=== PATIENT | male | born 1945 | race Caucasian/White ===

== ENCOUNTER 2024-12-21 13:27 | Inpatient (IN) | payer MEDICARE, OTHER, SELFPAY ==
[2024-12-21] VITALS (12 sets, daily range): BP systolic 133–159; BP diastolic 71–120; BMI 33.3; BMI 33.2
--- NOTE | 2024-12-21 10:48 | ED.GENMED ---
History of Present Illness
General
Chief Complaint: Musculo-Skeletal Complaint
Source: patient
Exam Limitations: none
Time Seen by Provider: 12/21/24 10:13
History of Present Illness
History of Present Illness:
See MDM
Past History
Past History
ED Past Medical History: HTN, Hypercholesterolemia and Hypothyroidism
ED Past Surgical History: Cardiac (Aortic aneurysm repair) and Orthopedic
Social History
Tobacco: Non-smoker
Alcohol: None
Phy Exam
Physical Exam
Physical Exam:
See MDM
Course
Orders/Labs/Results
Orders:
Orders
12/21/24 10:40
Morphine Sulfate 4 mg IV NOW STA
12/21/24 10:41
CT Head W/o Iv Contrast Urgent
Comment:
Reason For Exam: headache
C-Reactive Protein Urgent
12/21/24 10:55
Add On- LAB Urgent
Tests Added?: ESR, CRP
US Carotid [US Cerebrovascular] Urgent
Comment:
Reason For Exam: b/l neck pain
12/21/24 11:02
Complete Blood Count/With Diff Urgent
Comprehensive Metabolic Panel Urgent
Erythrocyte Sed Rate Urgent
PTT Urgent
Prothrombin Time Urgent
Abnormal Lab Results
12/21/24
11:02
RBC 4.54 L 10^6/uL
(4.70-6.10)
Absolute Monos (auto) 0.9 H 10^3/uL
(0.1-0.6)
Lymphocytes % 17.1 L %
(20.5-51.1)
Monocytes % 11.0 H %
(1.7-9.3)
Carbon Dioxide 31 H mmol/L
(22-30)
Creatinine 0.6 L mg/dL
(0.7-1.3)
Glucose 116 H mg/dl
(70-99)
12/21/24 11:02
12/21/24 11:02
Vital Signs
Initial and Last Documented VS:
Initial Vital Signs
Temp Pulse Resp BP Pulse Ox
98.0 F 89 16 148/80 98
12/21/24 09:54 12/21/24 09:54 12/21/24 09:54 12/21/24 09:54 12/21/24 09:54
Last Documented Vital Signs
Temp Pulse Resp BP Pulse Ox
98.0 F 89 16 145/76 94
12/21/24 09:54 12/21/24 09:54 12/21/24 09:54 12/21/24 11:48 12/21/24 11:49
MDM/Problems Addressed
Differential Diagnosis Includes:
HPI and MDM Narrative:
79-year-old male presenting for approximately 4 days of headache and neck pain. Because his PCP is on vacation, he went to urgent care. Based on the tenderness in the right jaw, he was placed on antibiotics. Patient states he is having trouble
moving his neck [id number] due to ongoing pain. He is not noticing a superior headache as well. Patient has not been able to sleep due to the pain. On my exam, he has point tenderness to bilateral anterior neck, near the carotids. I discussed
the importance of carotid imaging such as CT angiogram. Patient states he has anaphylaxis to IV dye and requires a 24-hour prep before obtaining CT dye.
Physical exam
General: Mildly uncomfortable
HEENT: protecting airway. No dental infection noted
Neck: supple. Point tenderness to bilateral anterior neck
CV: No evidence of cyanosis
Resp: No accessory muscle use
Abd: Non-distended
Extremities: No deformities
Neuro: alert
Psych: Normal affect
Skin: Intact
Problems Addressed including Acute and Chronic Conditions affecting care:
1. Headache and neck pain
Acuity: acute
Prognosis: stable
Details: Given ongoing headache, will obtain CT head. Given the neck pain, patient requires some sort of neck imaging but states he requires 24-hour prep before CT IV dye
Updates
Case discussed with radiology. We discussed alternative diagnostic testing. We did discuss possibly obtaining carotid ultrasound and admitting for further testing. Case discussed with vascular surgery. Although possible, it is less likely that
this is bilateral carotid dissection. Given that CTA would be the better study for looking at the whole neck, will admit for IV dye prep and further testing
CT head negative. Will admit for further imaging
Differential Diagnosis (but not limited to): Carotid dissection, lymphadenopathy, cluster headache
Testing considered: CT angiogram neck
Drug therapy (if applicable): OTC meds, please see d/c instruction regarding Rx drugs
Amount and/or Complexity of Data Reviewed
Clinical info obtained from: Patient
External data reviewed: N/A
Labs I independently reviewed (but not limited to): WBC normal
Radiology: the CT scan was personally and independently reviewed. In addition, official CT report reviewed.
Pulse Ox: not hypoxic
EKG independently reviewed: N/A
News Clerk: N/A
Critical Care: N/A
Risk of Complication:
Social Determinants of health: Good social support
Discussed with other providers: hospitalist
Escalation of Care includes Admit/Obs: Given his ongoing neck pain and need for 24-hour steroid prep or IV dye, will admit
Occasional wrong word or 'sound a like' substitutions may have occurred due to the inherent limitations of voice recognition software. Read the chart carefully and recognize, using context, where substitutions have occurred.
*Critical Care Note
Total Time (30-74mins, 75-104mins- exclusive of procedures): Not Applicable
ED Attending Note
-
Portions of this chart may have been created with voice recognition software.� Occasional wrong word or��sound alike� substitutions may have occurred due to the inherent limitations of voice recognition software.
Discharge Plan
Departure
Patient Disposition: Admit
Date of Disposition: 12/21/24
Time of Disposition: 12:21
Admit to: Med/Surg
Presentation/result/management discussed w/ accepting MD/DO: Hospitalist
Discharge Problem:
Acute neck pain
Referrals:
JAMILA HILL MD [Family Provider] -
Interventions
Interventions:
*Risk Screen - Suicide Last Done: 12/21/24 09:54
*General Assessment Last Done: 12/21/24 10:20
*Neglect/Abuse Screening Last Done: 12/21/24 09:54
*ED- Fall Risk Assessment Last Done: 12/21/24 10:20
*ED COVID-19 Vaccine History Last Done: 12/21/24 10:20
ED-Musculoskeletal Assessment Last Done: 12/21/24 10:20
Discharge Date and Time
Print Language: TAJIK
[2024-12-21 11:16] LABS: Erythrocyte Sed Rate 15 mm/hour (0-20)
[2024-12-21] MEDS: MORPHINE SULFATE 4 MG IV (11:45)
[2024-12-21 12:14] LABS: % Basophils 0.5 % (0-2); % Immature Granulocytes 0.5 % (0-0.5); % Lymphocytes 17.1 % (20.5-51.1); % Neutrophils 69.9 % (42.2-75.2); Absolute Eosinophils 0.1 10^3/uL (0-0.7); Absolute Lymphocytes 1.3 10^3/uL (1.2-3.4); Absolute Monocytes 0.9 10^3/uL (0.1-0.6); Absolute Neutrophils 5.5 10^3/uL (1.4-6.5); Hematocrit 40.5 % (39.0-52.0); Hemoglobin 13.9 g/dL (13.0-18.0); Mean Corp Hgb Conc. 34.3 g/dL (33.0-37.0); Mean Corpuscular Hgb 30.6 pg (27.0-31.0); Mean Corpuscular Volume 89.2 fL (80.0-94.0); Nucleated Red Blood Cells % 0 % (-); Red Blood Cell Count 4.54 10^6/uL (4.70-6.10); Red Cell Dist. Width 13.4 % (11.5-14.5); White Blood Cell Count 7.9 10^3/uL (4.8-10.8)
[2024-12-21 12:15] LABS: ALT (SGPT) 16 U/L (0-50); AST (SGOT) 20 U/L (17-59); Alkaline Phosphatase 69 U/L (38-126); Blood Urea Nitrogen 14 mg/dl (9-20); Calcium 9.7 mg/dl (8.4-10.2); Carbon Dioxide 31 mmol/L (22-30); Chloride 102 mmol/L (98-107); Estimated Creatinine Clearance > 125 ml/min; Glucose 116 mg/dl (70-99); INR 1.13; PT 14.8 Sec (11.4-14.6); Potassium 3.9 mmol/L (3.5-5.1); Sodium 138 mmol/L (135-145); Total Bilirubin 1.3 mg/dl (0.2-1.3); Total Protein 6.5 g/dl (6.3-8.2); eGFR > 60.00
[2024-12-21 12:16] LABS: APTT 34.6 Sec (23.4-35.0)
[2024-12-21] MEDS: DILAUDID 0.5 MG IV (12:42)
--- NOTE | 2024-12-21 12:48 | HPS.HSE ---
Addendum entered and electronically signed by Shalini Sanz MD 12/21/24 14:35:
Ordered 12 hour steroid and benadryl protocol for CTA. Stopped clindamycin.
Addendum entered and electronically signed by Shalini Sanz MD 12/21/24 12:51:
Epistaxis
-now resolved
Original Note:
Family Physician
-
Family Physician: JAMILA HILL MD
Chief Complaint
-
neck pain
History of Present Illness
79-year-old male past medical history of cervical disc disease from youth, ascending aortic aneurysm status post repair 9 years ago, sinus surgery, BPH, hypertension, hyperlipidemia, GERD, hypothyroidism, presenting with neck pain over this past
week. He originally started having bilateral nasal bleeding that has resolved. Then around 4 to 5 days ago he developed pain in his bilateral neck limiting his neck movements. He has pain in his left neck when he moves his head to the right and
vice versa. He denies any pain in his teeth or jaw or anterior neck. He was started on antibiotic at urgent care for potential tooth infection.
He denies any injury to the neck. He denies any headache. He denies any pain in the temporal regions.
He denies having pain like this before. He denies any symptoms in his arms. He denies fevers or chills.
He has chronic blurry vision and occasional double vision for which he is due to get new glasses.
He drinks 1 martini few times a week. Denies smoking.
His father had colorectal cancer.
Medical History
Past Medical History
Past Medical History: Reports Other ( cervical disc disease from youth, ascending aortic aneurysm status post repair 9 years ago, sinus surgery, BPH, hypertension, hyperlipidemia, GERD, hypothyroidism)
Past Surgical History: Reports Other (Sinus surgery, vasectomy, ascending aortic aneurysm repair)
Social History
Tobacco: Non-smoker
Alcohol: Occasional
Drug: None
Family History
Family History: Not pertinent
Allergies / Home Medications
Allergies reflects when Allergies were last updated in [facility].
Home Medications with original date entered in [facility]
Allergy/Medication List:
Allergies
Allergy/AdvReac Type Severity Reaction Status Date / Time
seasonal allergies Allergy Itching Uncoded 12/21/24 10:01
Review of Systems
-
History Source: Patient
A 12 point ROS was completed and negative except as noted: Yes
Constitutional: Reports No Symptoms
EENT: Reports No Symptoms
Respiratory: Reports No Symptoms
Cardiac: Reports No Symptoms
Abdomen/GI: Reports No Symptoms
: Reports No Symptoms
Musculoskeletal: Reports No Symptoms
Skin: Reports No Symptoms
Neurological: Reports No Symptoms
Endocrine: Reports No Symptoms
Hematologic/Lymphatic: Reports No Symptoms
Psych: Reports No Symptoms
Physical Exam
Vital Signs
Vital Signs
Temp Pulse Resp BP Pulse Ox
98.0 F 89 16 145/76 94
12/21/24 09:54 12/21/24 09:54 12/21/24 09:54 12/21/24 11:48 12/21/24 11:49
Physical Exam
General: Well Developed, Well Nourished and No Apparent Distress
HEENT: NormoCephalic, Moist mucous membranes and Atraumatic
Respiratory: Clear
Cardiac: S1/S2 and Regular Rhythm; No Murmur or Rub
GI: Soft, Non Tender, Non Distended and Normal Bowel Sounds; No Organomegaly
Rectal: Deferred by Provider
Musculoskeletal: No Clubbing, No Cyanosis, No Edema and Other (posterior neck muscle tenderness )
Skin: No Rash
Neuro: Nonfocal/grossly intact
Laboratory Results
-
12/21/24 11:02
12/21/24 11:02
Laboratory Results
PT 14.8 Sec (11.4-14.6) H 12/21/24 11:02
INR 1.13 12/21/24 11:02
APTT 34.6 Sec (23.4-35.0) 12/21/24 11:02
Total Bilirubin 1.3 mg/dl (0.2-1.3) 12/21/24 11:02
AST 20 U/L (17-59) 12/21/24 11:02
ALT 16 U/L (0-50) 12/21/24 11:02
Alkaline Phosphatase 69 U/L (38-126) 12/21/24 11:02
Data Reviewed
-
Lab Data: Labs Reviewed by me
Old Records: Reviewed
Impression/Plan
-
IMPRESSION:
PLAN:
# Bilateral posterior neck pain with neck swelling likely cervical muscle strain, less likely carotid vascular dissection
# History of cervical disc disease from childhood
-He has clear swelling and tenderness of the cervical neck and bilateral trapezius area
-ER note discusses anterior neck pain however patient denies
- CT head shows no acute abnormality
- CRP and ESR pending
- ER discussed with vascular who recommended CTA head and neck however patient has contrast allergy (anaphyllaxis) and requires 24-hour steroid prep which will be started
- Carotid ultrasound pending
-Check cervical x-ray
- Morphine given
- Continue Tylenol, add Flexeril
#Chronic blurry vision/intermittent double vision
-opthalmic, patient needs glasses udate
Ascending aortic aneurysm s/p repair 9 years ago
History of sinus surgery
BPH
Essential hypertension
- Continue hydrochlorothiazide, metoprolol
Hyperlipidemia
- Continue Zetia
GERD
- Continue PPI
Hypothyroidism
- Continue levothyroxine
Full code
DVT prophylaxis�heparin
Regular diet
[2024-12-21] MEDS: LIDOCAINE 4% PATCH 1 PATCH TOPICAL (13:20)
[2024-12-21] MEDS: MEDROL 32 MG PO (14:23)
[2024-12-21] MEDS: ZESTRIL 20 MG PO (21:43)
[2024-12-21] MEDS: TOPROL XL 50 MG PO (21:44)
[2024-12-21] MEDS: BACTROBAN 2% OINTMENT 1 APPLIC TOPICAL (21:45)
[2024-12-21] MEDS: HEPARIN 5000 UNITS SC (21:46)
[2024-12-21] MEDS: NAPROSYN 250 MG PO (22:05)
[2024-12-21] MEDS: XALATAN OPHTHALMIC SOLUTION 1 DROP BOTH EYES (22:06)
[2024-12-21] MEDS: SINGULAIR 10 MG PO (22:06)
--- NOTE | 2024-12-22 03:36 | PTCARENOTE ---
Patient arrived to floor from ED. Patient ambulated from stretcher to bed. Patient oriented to room, patient AAOx3. Call claros within reach, bed in the lowest position. Will continue to monitor.
--- NOTE | 2024-12-22 05:32 | PTCARENOTE ---
Patient CT scan moved to 0800. Allergies updated. Will continue to monitor.
--- NOTE | 2024-12-22 05:41 | PTCARENOTE ---
Patient made aware by this RN that both Astepro and Tadalafil are non formulary with no auto sub in place. Patient stated he is 'just going to wait to go home to continue taking them.' Will continue to monitor.
[2024-12-22] MEDS: MEDROL 32 MG PO (05:59)
[2024-12-22] MEDS: SYNTHROID 137 MCG PO (05:59)
[2024-12-22 06:37] LABS: % Basophils 0.1 % (0-2); % Eosinophils 0.1 % (0-6); % Immature Granulocytes 0.7 % (0-0.5); % Lymphocytes 14.7 % (20.5-51.1); % Monocytes 7.7 % (1.7-9.3); % Neutrophils 76.7 % (42.2-75.2); Absolute Immature Granulocytes 0.1 10^3/uL (0-0.05); Absolute Lymphocytes 1.1 10^3/uL (1.2-3.4); Absolute Monocytes 0.6 10^3/uL (0.1-0.6); Absolute Neutrophils 5.8 10^3/uL (1.4-6.5); Mean Corp Hgb Conc. 33.3 g/dL (33.0-37.0); Mean Corpuscular Hgb 30.5 pg (27.0-31.0); Mean Corpuscular Volume 91.5 fL (80.0-94.0); Nucleated Red Blood Cells % 0 % (-); Platelet Count 166 10^3/uL (130-400); Red Blood Cell Count 4.59 10^6/uL (4.70-6.10); Red Cell Dist. Width 13.1 % (11.5-14.5); White Blood Cell Count 7.5 10^3/uL (4.8-10.8)
[2024-12-22] MEDS: BENADRYL 50 MG PO ×2 (06:38→10:47)
[2024-12-22 07:04] LABS: ALT (SGPT) 16 U/L (0-50); AST (SGOT) 20 U/L (17-59); Albumin 4.2 g/dl (3.5-5.0); Alkaline Phosphatase 70 U/L (38-126); Blood Urea Nitrogen 18 mg/dl (9-20); Calcium 9.2 mg/dl (8.4-10.2); Carbon Dioxide 32 mmol/L (22-30); Chloride 99 mmol/L (98-107); Estimated Creatinine Clearance > 125 ml/min; Glucose 125 mg/dl (70-99); Potassium 4.5 mmol/L (3.5-5.1); Sodium 140 mmol/L (135-145); Total Bilirubin 0.8 mg/dl (0.2-1.3); Total Protein 6.7 g/dl (6.3-8.2); eGFR > 60.00
[2024-12-22 07:30] VITALS: BP 134/78
--- NOTE | 2024-12-22 07:53 | W.PN.HOSP.TC ---
Today's Communication/Plan
-
Possible discharge tomorrow if symptoms cont to improve and pending PT/OT eval
pain control
Assessment / Plan
Assessment / Plan
Physical Exam
General: Well Developed, Well Nourished and No Apparent Distress
HEENT: NormoCephalic, Moist mucous membranes and Atraumatic. No significant right facial swelling noted at this time
Respiratory: Clear
Cardiac: S1/S2 and Regular Rhythm; No Murmur or Rub
GI: Soft, Non Tender, Non Distended and Normal Bowel Sounds; No Organomegaly
Rectal: Deferred by Provider
Musculoskeletal: No Clubbing, No Cyanosis, No Edema, some neck stiffness/tenderness persist limited range of motion though significantly improved per patient
Skin: No Rash
Neuro: AOx3 conversant coherent
HPI: 79M hx cervical disc disease from youth, ascending aortic aneurysm status post repair 9 years ago, sinus surgery, BPH, hypertension, hyperlipidemia, GERD, hypothyroidism, p/w progressive neck pain over the past week limiting rotation of his
neck. On evaluation at urgent care he was noted to have right sided facial swelling jaw tenderness, concern for potential tooth infection, for which he was started on Clindamycin. He had taken only 1 day's worth doses (300 mg QID) when he
presented to ED d/t worsening pain/stiffness overnight waking him from sleep. Denied any injury to the neck, headache, or pain in the temporal regions. Denied having pain like this before. Denied fever or chills.
# Bilateral posterior neck pain with neck swelling possible cervical muscle strain, carotid vascular dissection ruled out
#Possible Acute Dystonia rxn unclear from what though
# History of cervical disc disease from childhood
- CT head showed no acute abnormality
- ESR wnl though CRP elevated
- ER discussed with vascular who recommended CTA head and neck however patient has contrast allergy (anaphyllaxis) and required 24-hour steroid prep
- CTA head/neck appreciated no significant acute abn's, mild left supraclavicular nonspecific adenopathy
- cervical x-ray appreciated degenerative changes otherwise no acute abn's
- cont pain control Tylenol Flexeril prn Morphine
- monitor off abx
-symptoms since significantly improved, possibly d/t steroid prep as above. Monitor for recurrence/worsening symptoms. Possible discharge tomorrow if continues to improve pending PT/OT eval.
#Chronic blurry vision/intermittent double vision
-opthalmic, patient needs glasses update
Ascending aortic aneurysm s/p repair 9 years ago
History of sinus surgery
BPH
Essential hypertension
- Continue hydrochlorothiazide, metoprolol
Hyperlipidemia
- Continue Zetia
GERD
- Continue PPI
Hypothyroidism
- Continue levothyroxine
PT/OT eval
Full code
DVT prophylaxis�heparin
Regular diet
discussed with patient and patient's daughter Barbara
I spent a total of 50 minutes with the patient or on the floor. More than 50% of this time involved counseling and coordination of care.
Anticipated Discharge: Within 24 hours
Subjective/Interval History
-
Date of Service: December 22, 2024
Reports pain and swelling significantly improved.
Objective Data
-
Labs:
Laboratory Results
12/22/24
05:39
WBC 7.5
Hgb 14.0
Hct 42.0
Plt Count 166
Sodium 140
Potassium 4.5
Chloride 99
Carbon Dioxide 32 H
BUN 18
Creatinine 0.6 L
Glucose 125 H
Calcium 9.2
Total Bilirubin 0.8
AST 20
ALT 16
Alkaline Phosphatase 70
Vital Signs:
Vital Signs
Temp Pulse Resp BP Pulse Ox
97.7 F 98 18 137/71 98
12/21/24 23:00 12/21/24 23:00 12/21/24 23:00 12/21/24 23:00 12/21/24 23:00
[2024-12-22] MEDS: THERAGRAN 1 TABLET PO (09:52)
[2024-12-22] MEDS: VITAMIN D3 (cholecalciferol) 75 MCG PO (09:52)
[2024-12-22] MEDS: ASPIR LOW (ENTERIC COATED) 81 MG PO (09:52)
[2024-12-22] MEDS: ZETIA 10 MG PO (09:52)
[2024-12-22] MEDS: NAPROSYN 250 MG PO ×2 (09:52→20:43)
[2024-12-22] MEDS: ORETIC 25 MG PO (09:52)
[2024-12-22] MEDS: PROTONIX 40 MG PO (09:52)
[2024-12-22] MEDS: CLARITIN 10 MG PO (09:52)
[2024-12-22] MEDS: VISBIOME 1 CAP PO (09:52)
[2024-12-22] MEDS: HEPARIN 5000 UNITS SC ×2 (09:53→20:42)
[2024-12-22] MEDS: BACTROBAN 2% OINTMENT 1 APPLIC TOPICAL ×2 (09:53→20:47)
[2024-12-22] MEDS: LIDOCAINE 4% PATCH 1 PATCH TOPICAL (09:53)
[2024-12-22] MEDS: DELTASONE 50 MG PO (10:45)
--- NOTE | 2024-12-22 15:16 | CM ---
Patient seen at bedside with daughter Barbara
IA completed
Head/Neck CTAC completed
Lives alone in 2 story home, 1 step to enter, flight of stairs to bedroom/bath, powder room 1st floor
PLOF: independent
DME: Crutches, cane
Denes VN/has had outpatient PT in past
drove self to hospital
PCP: Jm Salgado
Pharmacy: [facility] [address]
Plan: home, no needs anticipated, CM to continue to follow
[2024-12-22 15:30] VITALS: BP 121/68
[2024-12-22] MEDS: FLEXERIL 5 MG PO (16:01)
[2024-12-22] MEDS: ZESTRIL 20 MG PO (17:51)
[2024-12-22] MEDS: TOPROL XL 50 MG PO (17:51)
[2024-12-22] MEDS: XALATAN OPHTHALMIC SOLUTION 1 DROP BOTH EYES (20:58)
[2024-12-22] MEDS: SINGULAIR 10 MG PO (21:16)
[2024-12-22 23:00] VITALS: BP 127/58
[2024-12-23 06:18] LABS: Hemoglobin 14.1 g/dL (13.0-18.0); Mean Corp Hgb Conc. 32.8 g/dL (33.0-37.0); Mean Corpuscular Hgb 30.3 pg (27.0-31.0); Mean Corpuscular Volume 92.5 fL (80.0-94.0); Mean Platelet Volume 9.8 fL (7.4-10.4); Platelet Count 185 10^3/uL (130-400); Red Blood Cell Count 4.65 10^6/uL (4.70-6.10); Red Cell Dist. Width 13.2 % (11.5-14.5); White Blood Cell Count 10.3 10^3/uL (4.8-10.8)
[2024-12-23] MEDS: SYNTHROID 137 MCG PO (06:21)
[2024-12-23 06:55] LABS: Blood Urea Nitrogen 32 mg/dl (9-20); Calcium 9.4 mg/dl (8.4-10.2); Carbon Dioxide 32 mmol/L (22-30); Chloride 100 mmol/L (98-107); Estimated Creatinine Clearance 110 ml/min; Glucose 116 mg/dl (70-99); Phosphorus 4.1 mg/dl (2.5-4.5); Potassium 4.3 mmol/L (3.5-5.1); Sodium 141 mmol/L (135-145); eGFR > 60.00
[2024-12-23 07:32] VITALS: BP 129/79
[2024-12-23] MEDS: LIDOCAINE 4% PATCH 1 PATCH TOPICAL (09:10)
[2024-12-23] MEDS: NAPROSYN 250 MG PO (09:11)
[2024-12-23] MEDS: CLARITIN 10 MG PO (09:11)
[2024-12-23] MEDS: THERAGRAN 1 TABLET PO (09:11)
[2024-12-23] MEDS: ZETIA 10 MG PO (09:11)
[2024-12-23] MEDS: VITAMIN D3 (cholecalciferol) 75 MCG PO (09:11)
[2024-12-23] MEDS: VISBIOME 1 CAP PO (09:11)
[2024-12-23] MEDS: PROTONIX 40 MG PO (09:11)
[2024-12-23] MEDS: ORETIC 25 MG PO (09:11)
[2024-12-23] MEDS: ASPIR LOW (ENTERIC COATED) 81 MG PO (09:12)
[2024-12-23] MEDS: HEPARIN 5000 UNITS SC (09:13)
[2024-12-23] MEDS: BACTROBAN 2% OINTMENT 1 APPLIC TOPICAL (09:13)
--- NOTE | 2024-12-23 10:11 | CON.ONC ---
Consultation
-
Date Consultation Requested: 12/23/24
Date Consultation Performed: 12/23/24
Requesting Provider: Braulio Haile MD
Performing Provider: Cande Patton MD
Reason for Consultation: L supraclavicular adenopathy
Impression
Impression
Supraclavicular node 1.4 cm.
Neck pain.
Plan
Plan
Pt with small supraclavicular node.
Suspect unrelated to the acute process.
Because lymph node is very small, lymph node could be reimaged by U/S in two months to verify stability, refer to ENT if biopsy needed.
Pt is actually seeing his ENT in two weeks. His ENT is not in the [facility] system. Advised pt/daughter to obtain disc from Radiology with CT images for pt's ENT to review.
Does not require Med Onc follow up.
Cleared for D/C from our standpoint.
Patient History
History of Present Illness
79-year-old male hx cervical disc disease, ascending aortic aneurysm status post repair 9 years ago, sinus surgery, BPH, hypertension, hyperlipidemia, GERD, hypothyroidism, p/w progressive neck pain over the past week limiting rotation of his neck.
On evaluation at urgent care he was noted to have right sided facial swelling jaw tenderness, concern for potential tooth infection, for which he was started on Clindamycin. He had taken only 1 day's worth doses (300 mg QID) when he presented to ED
d/t worsening pain/stiffness overnight waking him from sleep. Denied any injury to the neck, headache, or pain in the temporal regions. CTA head and neck incidentally noted a 1.4 cm L supraclav lymph node, otherwise unremarkable. Drinks alcohol
regularly but does not smoke.
Past-Medical/Surgical History
Medical History
Cervical disc disease from youth, ascending aortic aneurysm status post repair 9 years ago, sinus surgery, BPH, hypertension, hyperlipidemia, GERD, hypothyroidism
Surgical History
Sinus surgery, vasectomy, ascending aortic aneurysm repair
Social History
Tobacco: Non-smoker
Alcohol: three martinis per week
Drug: None
Family History
Family History: Not pertinent
Patient Medication
�Medication �Instructions �Recorded �Confirmed �Last Taken �Type
Lactobac no.2-Bifidobac no.1-S. 1 cap PO DAILY 12/21/24 12/21/24 Unknown History
thermo 112.5 billion cell capsule
(Visbiome)
amoxicillin 500 mg capsule 2,000 mg PO DAILYPRN PRN for 12/21/24 12/21/24 Unknown History
dental visits
aspirin 81 mg tablet 81 mg PO DAILY 12/21/24 12/21/24 12/21/24 History
azelastine 205.5 mcg (0.15 %) 1 spray intranasal BID 12/21/24 12/21/24 12/21/24 History
nasal spray (Astepro Allergy)
cholecalciferol (vitamin D3) 25 75 mcg PO DAILY 12/21/24 12/21/24 12/20/24 History
mcg (1,000 unit) tablet
clindamycin HCl 300 mg capsule 300 mg PO QID 12/21/24 12/21/24 12/21/24 History
ezetimibe 10 mg tablet 10 mg PO DAILY 12/21/24 12/21/24 12/21/24 History
hydrochlorothiazide 25 mg tablet 25 mg PO DAILY 12/21/24 12/21/24 12/21/24 History
latanoprost 0.005 % eye drops 1 drp BOTH EYES HS 12/21/24 12/21/24 12/20/24 History
levothyroxine 137 mcg tablet 137 mcg PO DAILY 12/21/24 12/21/24 12/21/24 History
lisinopril 20 mg tablet 20 mg PO QPM 12/21/24 12/21/24 12/20/24 History
loratadine 10 mg tablet (Claritin) 10 mg PO DAILY 12/21/24 12/21/24 12/21/24 History
metoprolol succinate 50 mg 50 mg PO QPM 12/21/24 12/21/24 12/20/24 History
tablet,extended release 24 hr
montelukast 10 mg tablet 10 mg PO HS 12/21/24 12/21/24 12/20/24 History
asxlhdfmqexi-eqcmuuea-tbrvmd tablet 1 tab PO DAILY 12/21/24 12/21/24 12/20/24 History
mupirocin 2 % topical ointment 1 applic topical BID to sore on 12/21/24 12/21/24 12/21/24 History
abdomen
naproxen sodium 220 mg tablet 220 mg PO BID 12/21/24 12/21/24 12/21/24 History
(Aleve)
omeprazole 20 mg capsule,delayed 20 mg PO DAILY 12/21/24 12/21/24 12/21/24 History
release
tadalafil 5 mg tablet 5 mg PO QPM 12/21/24 12/21/24 12/20/24 History
Active Medications
Generic Name Dose Route Start Last Admin
Trade Name Freq PRN Reason Stop Dose Admin
Acetaminophen 650 mg 12/21/24 19:49
Acetaminophen 325 Mg Tablet PO 01/18/25 19:48
Q4HPRN PRN
mild pain/IVORY/temp> 100.4F
Aspirin 81 mg 12/22/24 08:00 12/23/24 09:12
Aspirin 81 Mg (Enteric Coated) Tablet PO 01/19/25 07:59 81 mg
DAILY CORWIN Administration
Cholecalciferol 75 mcg 12/22/24 08:00 12/23/24 09:11
Cholecalciferol (Vitamin D3) 25 Mcg Tablet (1,000 Units) PO 01/19/25 07:59 75 mcg
DAILY CORWIN Administration
Cyclobenzaprine HCl 5 mg 12/21/24 19:49 12/22/24 16:01
Cyclobenzaprine 10 Mg Tablet PO 01/18/25 19:48 5 mg
Q8HPRN PRN Administration
neck pain
Ezetimibe 10 mg 12/22/24 08:00 12/23/24 09:11
Ezetimibe (Zetia) 10 Mg Tablet PO 01/19/25 07:59 10 mg
DAILY CORWIN Administration
Heparin Sodium 5,000 units 12/21/24 20:00 12/23/24 09:13
Heparin 5,000 Units/Ml 1 Ml Vial SC 01/18/25 19:59 5,000 units
Q12 CORWIN Administration
Hydrochlorothiazide 25 mg 12/22/24 08:00 12/23/24 09:11
Hydrochlorothiazide 25 Mg Tablet PO 01/19/25 07:59 25 mg
DAILY CORWIN Administration
Lactobacillus/Bifidobacterium 1 cap 12/22/24 08:00 12/23/24 09:11
Lactobac/Bifidobac (Visbiome) PO 01/19/25 07:59 1 cap
DAILY CORWIN Administration
Latanoprost 0 drop 12/21/24 22:00 12/22/24 20:58
Latanoprost 0.005% (Ophthalmic Solution) 2.5 Ml Bottle BOTH EYES 01/18/25 21:59 1 drop
HS CORWIN Administration
Levothyroxine Sodium 137 mcg 12/22/24 06:00 12/23/24 06:21
Levothyroxine 137 Mcg Tablet PO 01/19/25 05:59 137 mcg
DAILY@0600 CORWIN Administration
Lidocaine 1 patch 12/21/24 13:15 12/23/24 09:10
Lidocaine 4% Topical Patch TOPICAL 01/18/25 13:14 1 patch
DAILY CORWIN Administration
Protocol
Lisinopril 20 mg 12/21/24 19:49 12/22/24 17:51
Lisinopril 20 Mg Tablet PO 01/18/25 19:48 20 mg
QPM CORWIN Administration
Loratadine 10 mg 12/22/24 08:00 12/23/24 09:11
Loratadine 10 Mg Tablet PO 01/19/25 07:59 10 mg
DAILY CORWIN Administration
Metoprolol Succinate 50 mg 12/21/24 19:49 12/22/24 17:51
Metoprolol 50 Mg Extended Release Tablet PO 01/18/25 19:48 50 mg
QPM CORWIN Administration
Montelukast Sodium 10 mg 12/21/24 22:00 12/22/24 21:16
Montelukast Sodium 10 Mg Tablet PO 01/18/25 21:59 10 mg
HS CORWIN Administration
Morphine Sulfate 2 mg 12/23/24 01:40
Morphine 2 Mg/Ml Syringe IV 01/06/25 01:39
Q4HPRN PRN
moderate severe pain
Multivitamins Therapeutic 1 tablet 12/22/24 08:00 12/23/24 09:11
Multivitamin Tablet PO 01/19/25 07:59 1 tablet
DAILY CORWIN Administration
Mupirocin 0 applic 12/21/24 20:00 12/23/24 09:13
Mupirocin 2% (Ointment) 22 Gram Tube TOPICAL 1 applic
BID CORWIN Administration
Naproxen 250 mg 12/21/24 21:00 12/23/24 09:11
Naproxen 250 Mg Tablet PO 01/18/25 20:59 250 mg
BID CORWIN Administration
Non-Formulary Medication 1 spray 12/21/24 20:00
Azelastine [Astepro Allergy] NASAL 01/18/25 19:59
BID CORWIN
Non-Formulary Medication 5 mg 12/21/24 19:49
Tadalafil PO 01/18/25 19:48
QPM CORWIN
Pantoprazole Sodium 40 mg 12/22/24 08:00 12/23/24 09:11
Pantoprazole 40 Mg Delayed Release Tablet PO 01/19/25 07:59 40 mg
DAILY CORWIN Administration
Patch Removal 1 patch 12/21/24 20:00 12/22/24 20:45
Remove Lidocaine Patch REMOVE 01/18/25 19:59 1 patch
DAILY@2000 CORWIN Administration
Sodium Chloride 0 flush 12/23/24 02:00
Sodium Chloride 0.9% (Flush) Syringe IV 01/20/25 01:59
PER PROTOCOL CORWIN
Review of Systems
-
History Source: Patient
All Other Systems: Reviewed and Negative
Physical Exam
-
General: Well Developed and Well Nourished
HEENT: Moist Mucous Membranes; Negative Jaundice
Cardiology: Normal Sinus Rhythm, S1 and S2
Pulmonary: Clear; Negative Wheezes or Rales
GI: Soft and Normal Bowel Sounds; Negative Distended
Musculoskeletal: No Clubbing, No Cyanosis and No Edema
Extremities: No C/C/E
Neurology: Non Focal
Skin: Warm and Dry
Hematologic / Lymphatic: No Lymphadenopathy and Other (No palpable supraclavicular adenopathy)
Psych: Calm and Intact Judgement/Insight
Labs
Lab Results
WBC 10.3 10^3/uL (4.8-10.8) 12/23/24 05:23
RBC 4.65 10^6/uL (4.70-6.10) L 12/23/24 05:23
Hgb 14.1 g/dL (13.0-18.0) 12/23/24 05:23
Hct 43.0 % (39.0-52.0) 12/23/24 05:23
MCV 92.5 fL (80.0-94.0) 12/23/24 05:23
MCH 30.3 pg (27.0-31.0) 12/23/24 05:23
MCHC 32.8 g/dL (33.0-37.0) L 12/23/24 05:23
RDW 13.2 % (11.5-14.5) 12/23/24 05:23
Plt Count 185 10^3/uL (130-400) 12/23/24 05:23
MPV 9.8 fL (7.4-10.4) 12/23/24 05:23
Abs Immat Gran (auto) 0.1 10^3/uL (0-0.05) H 12/22/24 05:39
Absolute Neuts (auto) 5.8 10^3/uL (1.4-6.5) 12/22/24 05:39
Absolute Lymphs (auto) 1.1 10^3/uL (1.2-3.4) L 12/22/24 05:39
Absolute Monos (auto) 0.6 10^3/uL (0.1-0.6) 12/22/24 05:39
Absolute Eos (auto) 0.0 10^3/uL (0-0.7) 12/22/24 05:39
Absolute Basos (auto) 0.0 10^3/uL (0-0.2) 12/22/24 05:39
Immature Gran % 0.7 % (0-0.5) H 12/22/24 05:39
Neutrophils % 76.7 % (42.2-75.2) H 12/22/24 05:39
Lymphocytes % 14.7 % (20.5-51.1) L 12/22/24 05:39
Monocytes % 7.7 % (1.7-9.3) 12/22/24 05:39
Eosinophils % 0.1 % (0-6) 12/22/24 05:39
Basophils % 0.1 % (0-2) 12/22/24 05:39
Creatinine 0.7 mg/dL (0.7-1.3) 12/23/24 05:23
Vital Signs
Vital Signs
Temp Pulse Resp BP Pulse Ox
97.7 F 74 18 129/79 94
12/23/24 07:32 12/23/24 07:32 12/23/24 07:32 12/23/24 07:32 12/23/24 07:32
[2024-12-23 15:20] VITALS: BP 134/72
--- NOTE | 2024-12-23 15:46 | W.PN.HOSP.TC ---
Today's Communication/Plan
-
More than 30 minutes spent in discharge including
Final examination of the patient
Summarizing hospital stay
Instructions for continuing care to all relevant caregivers
Preparation of discharge records, prescriptions, and referral forms
Total time spent (in minutes): 33min
Assessment / Plan
Assessment / Plan
NAD
Scleral Anicteric
MMM
No JVD, no swelling around the neck, some noticeable supraclavicular tenderness left-sided left-sided small node
CTABL
RRR, S1/S2
Soft, NT, ND, BS+
Warm, Dry
AAOx3
Calm
Bilateral posterior neck pain likely musculoskeletal worse with range of motion points to trapezius muscle
Neck pain improved with steroids
CT a head and neck that was recommended by vascular surgery did not show significant acute abnormalities however did show mild left supraclavicular nonspecific adenopathy
This could be related to infection or insidious like lymphoma. Therefore we will have oncology evaluate. Likely able to discharge later today with continued outpatient follow-up and potential biopsy with IR or ENT if needed.
#Chronic blurry vision/intermittent double vision
-opthalmic, patient needs glasses update
Essential hypertension
- Continue hydrochlorothiazide, metoprolol
Hyperlipidemia
- Continue Zetia
GERD
- Continue PPI
Hypothyroidism
- Continue levothyroxine
Full code
DVT prophylaxis�heparin
Regular diet
Anticipated Discharge: Today
Subjective/Interval History
-
Date of Service: December 23, 2024
Seen and examined. No new complaints. No acute overnight events.
States feeling better.
Objective Data
-
Labs:
Laboratory Results
12/23/24
05:23
WBC 10.3
Hgb 14.1
Hct 43.0
Plt Count 185
Sodium 141
Potassium 4.3
Chloride 100
Carbon Dioxide 32 H
BUN 32 H
Creatinine 0.7
Glucose 116 H
Calcium 9.4
Vital Signs:
Vital Signs
Temp Pulse Resp BP Pulse Ox
97.6 F 77 17 134/72 95
12/23/24 15:20 12/23/24 15:20 12/23/24 15:20 12/23/24 15:20 12/23/24 15:20
--- NOTE | 2024-12-23 16:07 | W.DCSUMMARY ---
Discharge Summary
Discharge Data
Date of Admission: 12/21/24
Date of Discharge: 12/23/24
-
Pending Results: No
Hospital Course
Presented with bilateral neck swelling and pain stiffness that was acute on nature. Cervical x-ray without acute findings. CT head and neck with angio s/p 13-hour steroid prep demonstrating left supraclavicular nonspecific adenopathy. CBC
unremarkable with a neutrophil count of 76.7 (12/22/24). Evaluated by oncology, recommended repeat ultrasound left supraclavicular node in follow-up. If involving will require biopsy with ENT
Head CT
IMPRESSION:
No acute intracranial abnormality noted.
Cervical Xray
IMPRESSION:
Incomplete evaluation of the cervical spine with only 5 cervical vertebral bodies able to be evaluated on lateral view. Consider CT for more complete evaluation.
Degenerative changes.
Head/Neck CTA
IMPRESSION:
No acute intracranial hemorrhage.
The cervical carotid and vertebral arteries are patent. No vascular wall thickening. No evidence of dissection. Mild calcified plaque in the left carotid bulb and proximal ICA without hemodynamically significant stenosis.
No [place] region aneurysm or stenosis.
No cerebral artery significant plaque, stenosis, thrombus, or occlusion.
No cervical mass or collection/abscess.
Unremarkable appearance of the major salivary glands.
Mild left supraclavicular nonspecific adenopathy with short axis measurement 1.4 cm.
Discharge Plan
-
Patient Disposition: Home (Routine Discharge)
Discharge Diagnosis/Procedures: Neck pain
Condition: Good
Diet: As tolerated
Activity: As tolerated
Activity Restrictions/Additional Instructions:
Presented with bilateral neck swelling and pain stiffness that was acute on nature. Cervical x-ray without acute findings. CT head and neck with angio s/p 13-hour steroid prep demonstrating left supraclavicular nonspecific adenopathy. CBC
unremarkable with a neutrophil count of 76.7 (12/22/24). Evaluated by oncology, recommended repeat ultrasound left supraclavicular node in follow-up. If involving will require biopsy with ENT
Head CT
IMPRESSION:
No acute intracranial abnormality noted.
Cervical Xray
IMPRESSION:
Incomplete evaluation of the cervical spine with only 5 cervical vertebral bodies able to be evaluated on lateral view. Consider CT for more complete evaluation.
Degenerative changes.
Head/Neck CTA
IMPRESSION:
No acute intracranial hemorrhage.
The cervical carotid and vertebral arteries are patent. No vascular wall thickening. No evidence of dissection. Mild calcified plaque in the left carotid bulb and proximal ICA without hemodynamically significant stenosis.
No [place] region aneurysm or stenosis.
No cerebral artery significant plaque, stenosis, thrombus, or occlusion.
No cervical mass or collection/abscess.
Unremarkable appearance of the major salivary glands.
Mild left supraclavicular nonspecific adenopathy with short axis measurement 1.4 cm.
Referrals:
JAMILA HILL MD [Family Provider] -
Prescriptions:
New
methylprednisolone [Medrol ([place])] 4 mg tablets,dose pack
See Rx Instructions .ROUTE .COMPLEX Qty: 21 0RF
Rx Instructions:
for 6 days
Continued
latanoprost 0.005 % drops
1 drp BOTH EYES HS
levothyroxine 137 mcg tablet
137 mcg PO DAILY
metoprolol succinate 50 mg tablet extended release 24 hr
50 mg PO QPM
lisinopril 20 mg tablet
20 mg PO QPM
naproxen sodium [Aleve] 220 mg Tablet
220 mg PO BID
omeprazole 20 mg capsule,delayed release(DR/EC)
20 mg PO DAILY
montelukast 10 mg tablet
10 mg PO HS
aspirin 81 mg Tablet
81 mg PO DAILY
hydrochlorothiazide 25 mg tablet
25 mg PO DAILY
mupirocin 2 % ointment
1 applic TOPICAL BID
loratadine [Claritin] 10 mg Tablet
10 mg PO DAILY
ewvrzqcigpbc-yvdzmbcg-zkvzvu Tablet
1 tab PO DAILY
ezetimibe 10 mg tablet
10 mg PO DAILY
cholecalciferol (vitamin D3) 25 mcg (1,000 unit) Tablet
75 mcg PO DAILY
Visbiome 112.5 billion cell Capsule
1 cap PO DAILY
azelastine [Astepro Allergy] 205.5 mcg (0.15 %) [place],Non-Aerosol
1 spray INTRANASAL BID
tadalafil 5 mg tablet
5 mg PO QPM
Discontinued
amoxicillin 500 mg Capsule
2,000 mg PO DAILYPRN PRN (Reason: for dental visits)
Rx Instructions:
take 1 hr prior to dental visit
clindamycin HCl 300 mg capsule
300 mg PO QID
Patient Comments:
took first dose today
Discharge Orders:
Discharge Patient (As Directed); Ordered 12/23/24
Ordered By: Braulio Haile
Discharge Date and Time
Print Language: LITHUANIAN
--- NOTE | 2024-12-23 17:00 | CM ---
CM continues to follow for discharge planning. IMM reviewed, signed and placed on chart. Pt provided with a copy.
Pt cleared for discharge to home today and will drive himself home.
Plan: Discharge to home with no needs.
== END 2024-12-23 18:26 | disposition home or self-care (01) | DRG 552 ==
LOC: 3 WEST ACU 13:27
PROVIDERS: Internal Medicine; ADMITTING PHYSICIAN Hospitalist; ATTENDING PHYSICIAN Hospitalist; CONSULT PHYSICIAN Internal Medicine Hematology & Oncology; EMERGENCY PHYSICIAN Student in an Organized Health Care Education/Training Program; FAMILY PHYSICIAN Internal Medicine
DX: S16.1XXA Strain of muscle, fascia and tendon at neck level, initial encounter (principal); N40.0 Benign prostatic hyperplasia without lower urinary tract symptoms; E78.00 Pure hypercholesterolemia, unspecified; K21.9 Gastro-esophageal reflux disease without esophagitis; I10 Essential (primary) hypertension; E03.9 Hypothyroidism, unspecified; Z80.0 Family history of malignant neoplasm of digestive organs; Z91.041 Radiographic dye allergy status; I65.22 Occlusion and stenosis of left carotid artery; R04.0 Epistaxis; Z79.82 Long term (current) use of aspirin; Z79.890 Hormone replacement therapy; Z79.899 Other long term (current) drug therapy
CPT/HCPCS: 70450; 70496; 70498; 72040; 80048; 80053; 83735; 84100; 85025; 85027; 85610; 85652; 85730; 86140; 96374; 96375; 97116; 97163; 97166; 99285; Q9967